=== PATIENT | male | born 1960 | race Caucasian/White ===

== ENCOUNTER 2016-06-06 01:11 | Emergency (ER) | payer OTHER ==
[~2016-06-06] VITALS: Ht 180.3 cm; Wt 95.3 kg
[2016-06-06] MEDS ORDERED: RISPERDAL 1 MG T1 MG PO (01:23)
[2016-06-06] MEDS ORDERED: SIMVASTATIN40 MG PO (01:24)
[2016-06-06] MEDS ORDERED: NORCO 5-325 TA1 EACH PO ×2 (02:08→02:18)
[2016-06-06 02:36] VITALS: BP 139/84
== END 2016-06-06 02:38 | disposition home or self-care (01) ==
LOC: ER 01:11
DX: S42.201A Unspecified fracture of upper end of right humerus, initial encounter for closed fracture (principal); F10.99 Alcohol use, unspecified with unspecified alcohol-induced disorder; Z77.22 Contact with and (suspected) exposure to environmental tobacco smoke (acute) (chronic); W00.2XXA Other fall from one level to another due to ice and snow, initial encounter; Y93.9 Activity, unspecified; Y92.9 Unspecified place or not applicable; Y99.9 Unspecified external cause status